=== PATIENT | male | born 1955 | race Caucasian/White ===

== ENCOUNTER → 2018-05-24 | Outpatient (CLI) | payer BC ==
[~2018-05-24] MED LIST: KEFLEX500 MG PO
== END | disposition home or self-care (01) ==
LOC: RAD 11:49
DX: M48.04 Spinal stenosis, thoracic region (principal); M47.896 Other spondylosis, lumbar region; I10 Essential (primary) hypertension

== ENCOUNTER → 2018-10-19 | Outpatient (CLI) | payer BC | END | disposition home or self-care (01) | LOC: RAD 09:32 | DX: M51.37 Other intervertebral disc degeneration, lumbosacral region (principal); M48.07 Spinal stenosis, lumbosacral region ==